=== PATIENT | male | born 1970 | race Caucasian/White ===

== ENCOUNTER 2021-03-07 03:25 | Emergency (ER) | payer OTHER ==
[~2021-03-07] VITALS: Ht 182.9 cm; Wt 90.7 kg
== END 2021-03-07 07:36 | disposition short-term general hospital (02) ==
LOC: ER 03:25
DX: R33.9 Retention of urine, unspecified (principal)
CPT/HCPCS: 51798; 96374; 99285-25; A9270; J3010

== ENCOUNTER 2021-09-25 16:49 | Emergency (ER) | payer OTHER ==
[~2021-09-25] VITALS: Ht 182.9 cm; Wt 84.8 kg
[~2021-09-25 16:49] MED LIST: APHEN325 MG PO; NICO21TP TOP
[2021-09-25 17:03] LABS: Source, Urine Clean Catch
[2021-09-25 17:34] LABS: Appearance, Urine Clear (Clear); Bilirubin, Urine Neg (Neg); Blood, Urine 1+ (Neg); Color, Urine Yellow (P-Yellow); Glucose Qualitative, Urine Neg (Neg); Ketones, Urine Neg (Neg); Leukocyte Esterase, Urine Neg (Neg); Nitrite, Urine Neg (Neg); Protein, Urine 2+ (Neg); Specific Gravity, Urine 1.005 (1.003-1.022); Urobilinogen, Urine 1+ (Normal)
[2021-09-25 18:12] LABS: Bacteria Mod /hpf; Squamous Epithelial Cells Rare /hpf (Few); White Blood Cells, Urine 0-2 /hpf (0-5)
[2021-09-25 18:13] LABS: Amorphous Light (0-Heavy); Mucus Mod (0-Heavy); Transitional Epithelial Cells Rare /hpf (0-Rare)
[2021-09-25] MEDS ORDERED: VALACYCLOVIR1000 MG PO (22:01)
[2021-09-25] MEDS ORDERED: CEPH500 PO (22:01)
[2021-09-26 09:18] LABS: RPR Reactive (Nonreactive)
[2021-09-28 01:11] LABS: CHLAMYDIA TRACHOMATIS, NAA Negative (Negative)
== END 2021-09-25 22:57 | disposition home or self-care (01) ==
LOC: ER 16:49
PROVIDERS: Physician Assistant
DX: N39.0 Urinary tract infection, site not specified (principal); A60.01 Herpesviral infection of penis
CPT/HCPCS: 81001; 86592; 86593; 87077; 87086; 87186; A9270; J0696; J1885; J2405

== ENCOUNTER 2023-08-21 11:02 | Emergency (ER) | payer OTHER ==
[~2023-08-21] VITALS: Ht 182.9 cm; Wt 84.8 kg
[~2023-08-21 11:02] MED LIST changes: +CEPH500 PO; +VALACYCLOVIR1000 MG PO
[2023-08-21 11:06] VITALS: BP 136/103
== END 2023-08-21 12:13 | disposition home or self-care (01) ==
LOC: ER 11:02
DX: K42.9 Umbilical hernia without obstruction or gangrene (principal); F17.210 Nicotine dependence, cigarettes, uncomplicated; Z88.0 Allergy status to penicillin
CPT/HCPCS: 99284-25

== ENCOUNTER 2024-12-21 05:33 | Emergency (ER) | payer OTHER ==
[~2024-12-21] VITALS: Ht 182.9 cm; Wt 83.9 kg
[2024-12-21 06:30] VITALS: BP 137/87
== END 2024-12-21 06:39 | disposition home or self-care (01) ==
LOC: ER 05:33
DX: S01.81XA Laceration without foreign body of other part of head, initial encounter (principal); F17.210 Nicotine dependence, cigarettes, uncomplicated; I10 Essential (primary) hypertension; Y09 Assault by unspecified means; Z88.0 Allergy status to penicillin
CPT/HCPCS: 12011; 99282-25

== ENCOUNTER 2025-04-26 12:56 | Inpatient (IN) | payer OTHER ==
[2025-04-26] VITALS (18 sets, daily range): BP systolic 80–120; BP diastolic 44–86
[~2025-04-26] VITALS: Ht 182.9 cm; Wt 88.4 kg
[2025-04-26] MEDS ORDERED: NS 1,000 ML IV SCH ×2 (13:10→17:20)
[2025-04-26 14:47] LABS: BASOPHILS ABSOLUTE AUTO 0.01 K/mm3 (0.00-0.23); BASOPHILS PERCENT AUTO 0 % (0-2); EOSINOPHILS ABSOLUTE AUTO 0.02 K/mm3 (0.00-0.68); EOSINOPHILS PERCENT AUTO 0 % (0-6); Hematocrit 33.9 % (37.0-53.0); Hemoglobin 11.0 g/dL (13.5-17.5); IMMATURE GRAN ABSOLUTE AUTO 0.03 K/mm3 (0.00-0.10); IMMATURE GRAN PERCENT AUTO 0 % (0-1); LYMPHOCYTES ABSOLUTE AUTO 0.87 K/mm3 (0.84-5.20); LYMPHOCYTES PERCENT AUTO 9 % (21-46); MONOCYTES ABSOLUTE AUTO 1.25 K/mm3 (0.16-1.47); MONOCYTES PERCENT AUTO 13 % (4-13); Mean Corpuscular HGB Conc 32.4 g/dL (31.5-36.5); Mean Corpuscular Volume 90 fL (80-100); NEUTROPHILS ABSOLUTE AUTO 7.55 K/mm3 (1.96-9.15); NEUTROPHILS PERCENT AUTO 78 % (41-73); NRBC ABSOLUTE 0.00 K/mm3 (0.00-0.02); NRBC Auto 0.0 /100 WBC (0.0-0.2); Platelet Count 197 K/mm3 (150-400); RDW Coefficient Variation 12.5 % (11.7-14.2); RDW Standard Deviation 41.3 fL (35.1-46.3)
[2025-04-26 15:10] LABS: Prothrombin Time Results 11.4 Sec (9.7-11.5)
[2025-04-26 15:13] LABS: Alanine Aminotransfer (ALT/SGP 23.0 U/L (12-78); Albumin, Blood 3.4 g/dL (3.4-5.0); Albumin/Globulin Ratio 1.0 (0.8-1.8); Anion Gap 5.0 mmol/L (3-11); Aspartate Aminotrans (AST/SGOT 27.0 U/L (12-37); Bilirubin, Total 1.3 mg/dL (0.1-1.0); Blood Urea Nitrogen 18.0 mg/dL (8-24); CO2, Blood 30.0 mmol/L (21-32); Calcium, Blood 8.5 mg/dL (8.5-10.1); Chloride, Blood 106.0 mmol/L (98-108); Creatinine, Blood 0.78 mg/dL (0.60-1.20); Globulin, Blood 3.3 g/dL (2.2-4.0); Glucose, Blood 139.0 mg/dL (70-99); Potassium, Blood 3.8 mmol/L (3.5-5.5); Sodium, Blood 137.0 mmol/L (136-145); Total Protein, Blood 6.7 g/dL (6.4-8.2)
[2025-04-26] MEDS ORDERED: Tranexamic Acid 100 ML IV ONE (16:10)
[2025-04-26 16:33] LABS: Calcium, Ionized (POC) 1.18 mmol/L (1.10-1.46); Chloride (POC) 100 mmol/L (98-108); Creatinine (POC) 0.9 mg/dL (0.8-1.3); Glucose (ISTAT POC) 107 mg/dL (70-99); Hematocrit (POC) 31.0 % (41.0-53.0); Hemoglobin (POC) 10.5 g/dL (13.5-17.5); Potassium (POC) 4.2 mmol/L (3.5-5.5); Sodium (POC) 139 mmol/L (135-148); Total CO2 (POC) 26 mmol/L (21-32)
[2025-04-26 17:13] LABS: Source, Urine Clean Catch
[2025-04-26] MEDS ORDERED: FentaNYL Citrate 50 MCG/ML 2 ML Injection ONE ×2 (17:13→20:58)
[2025-04-26 17:20] LABS: Bilirubin, Urine Neg (Neg); Color, Urine Yellow (P-Yellow); Glucose Qualitative, Urine Neg (Neg); Ketones, Urine Neg (Neg); Leukocyte Esterase, Urine Neg (Neg); Protein, Urine 2+ (Neg); Specific Gravity, Urine 1.020 (1.003-1.022); Urobilinogen, Urine NORM (Normal)
[2025-04-26] MEDS ORDERED: Metoclopramide HCl 5MG / ML 2ML Vial IV PRN ×2 (17:20→20:30)
[2025-04-26] MEDS ORDERED: Ondansetron HCl 2 MG / ML 2ML Vial IV PRN (17:20)
[2025-04-26] MEDS ORDERED: FentaNYL Citrate 50 MCG/ML 2 ML Injection IV PRN ×2 (17:20→18:20)
[2025-04-26 17:31] LABS: Red Blood Cells, Urine 0-2 /hpf (0-2)
[2025-04-26] MEDS ORDERED: HYDROmorphone HCl/Pf 1MG SYR IV PRN (17:35)
[2025-04-26 17:54] LABS: Hematocrit 30.9 % (37.0-53.0); Hemoglobin 10.1 g/dL (13.5-17.5)
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
[2025-04-26] MEDS ORDERED: NS 1,000 ML IV ONE ×2 (20:05→20:20)
[2025-04-26] MEDS ORDERED: Heparin Sodium 1000 Units/ML 10ML MDV ONE (20:05)
[2025-04-26] MEDS ORDERED: Metoclopramide HCl 5MG / ML 2ML Vial IV ONE (20:30)
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
[2025-04-26] MEDS ORDERED: Midazolam HCl 1MG / ML 2ML Vial ONE (20:57)
[2025-04-26] MEDS ORDERED: Phenylephrine HCl 100 MCG/ML-NS 10MLSYR (1MG/10ML) ONE (21:07)
[2025-04-26 22:19] LABS: Hematocrit 25.8 % (37.0-53.0); Hemoglobin 8.4 g/dL (13.5-17.5)
[2025-04-27] VITALS (96 sets, daily range): BP systolic 100–176; BP diastolic 60–108
--- NOTE | 2025-04-27 01:04 | NUR ---
PT RETURN FROM STORE STOCK ASSOCIATE: PT RETURNED FROM STORE STOCK ASSOCIATE @ 2200. PT HAS R. FEMORAL ACCESS SITE WITH AM ANGIOSEAL CLOSURE DEVICE. PT HAD THREE COILS PLACED TO THE SUB BRANCH SPLENIC ARTERY. R. FEM ACCESS SITE IS SOFT, NON-TENDER AND NO HEMATOMA PRESENT. PT EDUCATED ON LIMITED RANGE OF MOTION FOR R. LEG. PT VERBALIZES UNDERSTANDING. PT RECIEVING DILAUDID FOR PAIN MANAGEMENT WITH GOOD EFFECT. PG TO ADAM THAT IS PATENT AND INFUSING NS @ 100 MLS/HR. VSS AT THIS TIME. BED LOWERED, CALL LIGHT IN REACH.
[2025-04-27 02:32] LABS: Hematocrit 26.1 % (37.0-53.0); Hemoglobin 8.5 g/dL (13.5-17.5)
--- NOTE | 2025-04-27 06:14 | NUR ---
SHIFT SUMMARY: NO ACUTE CHANGES OVERNIGHT, VSS THROUGHOUT THE SHIFT. R . FEMORAL ACCESS SITE REMAINS UNCHANGED; SITE CLEANED AND NEW DRESSING PLACED. PT PAIN MANAGED WITH DILAUDID PER EMAR. PT IMPULSIVE AT TIMES BUT REMAINS REDIRECABLE. PI TO ADAM THAT IS PATENT AND INFUSING NS @ 100 MLS/HR. SERIAL H&H'S STABLE. BED LOWERED, CALL LIGHT IN REACH, WILL REPORT TO ONCOMING RN.
[2025-04-27 06:29] LABS: Hematocrit 25.9 % (37.0-53.0); Hemoglobin 8.5 g/dL (13.5-17.5); Mean Corpuscular HGB Conc 32.8 g/dL (31.5-36.5); Mean Corpuscular Volume 90 fL (80-100); NRBC ABSOLUTE 0.00 K/mm3 (0.00-0.02); NRBC Auto 0.0 /100 WBC (0.0-0.2); Platelet Count 185 K/mm3 (150-400); RDW Coefficient Variation 12.8 % (11.7-14.2); RDW Standard Deviation 42.2 fL (35.1-46.3)
[2025-04-27 06:46] LABS: Anion Gap 7.0 mmol/L (3-11); Blood Urea Nitrogen 20.0 mg/dL (8-24); CO2, Blood 27.0 mmol/L (21-32); Calcium, Blood 7.8 mg/dL (8.5-10.1); Chloride, Blood 105.0 mmol/L (98-108); Creatinine, Blood 0.66 mg/dL (0.60-1.20); Glucose, Blood 146.0 mg/dL (70-99); Potassium, Blood 4.2 mmol/L (3.5-5.5); Sodium, Blood 135.0 mmol/L (136-145)
--- NOTE | 2025-04-27 07:11 | NUR ---
Assumed care of pt at 0700. Bedside report received from Ijeoma GIBSON. Pt resting comfortably in bed. Even chest rise and fall noted. SpO2 96% RA. HR 92, NSR. BP stable.
[2025-04-27 08:17] LABS: Ferritin, Serum 161.0 ng/mL (26-388); Total Iron Binding Capacity 238.0 ug/dL (250-450)
--- NOTE | 2025-04-27 10:00 | NUR ---
Rey Tucker and Liza in to see patient this AM. Plan of care discussed.
[2025-04-27 10:49] LABS: Hematocrit 24.7 % (37.0-53.0); Hemoglobin 8.1 g/dL (13.5-17.5)
[2025-04-27 14:14] LABS: Hematocrit 22.8 % (37.0-53.0); Hemoglobin 7.8 g/dL (13.5-17.5)
--- NOTE | 2025-04-27 15:14 | NUR ---
H&H results noted. Pt more tachycardic than this AM, HR high 110s, low 120s. BP stable. Call placed to Dr Tucker to update. Plan to proceed with H&H check at 1800, as ordered. Dr De Jesus in to see pt this afternoon, labs and vitals discussed with him as well. Provider states plan to order nicotine patch (pt reports smoking 1/2 PPD) and PO pain medication.
--- NOTE | 2025-04-27 17:14 | NUR ---
SUMMARY: Pt does not answer orientation questions, but makes statements and requests that are contextually appropriate ( i.e. "how long have I been here", "I need more pain meds", etc.). Has been lethargic for majority of day. Pt reports feeling unwell whenever he is awake. Many verbal and nonverbal indications of pain when patient is awake. Out of bed once this shift to use toilet. Had one BM and one urine void. Tolerating clear liquid diet well. Skin assessment unchanged from initial. R groin site used for IR stable, no hematoma, bruising, or drainage. SpO2 90% or greater. SR-ST per monitor. Currently HR 95-110, although has been as high as 160 with activity (pt expressed severe pain with activity. HR normalized once pt was back in bed and resting).
[2025-04-27 18:11] LABS: Hematocrit 21.3 % (37.0-53.0); Hemoglobin 7.3 g/dL (13.5-17.5)
--- NOTE | 2025-04-27 18:29 | NUR ---
Call placed to Dr De Jesus and Dr Tucker to update with decrease in H&H. Plan of care discussed with Dr De Jesus. Message left for Dr Tucker.
[2025-04-27] MEDS ORDERED: NS 250 ML IV PRN (19:15)
[2025-04-27 20:03] LABS: U Amphetamine Screen DETECTED; U Barbituate Screen Not Detected; U Benzodiazapine Screen Not Detected; U Buprenorphine Screen Not Detected; U Cannabinoids Screen DETECTED; U Cocaine Screen Not Detected; U Methadone Screen Not Detected; U Methamphetamine Screen DETECTED; U Opiates Screen DETECTED; U Oxycodone Screen Not Detected; U Phencyclidine Screen Not Detected
[2025-04-28] VITALS (74 sets, daily range): BP systolic 117–169; BP diastolic 71–104
[2025-04-28 04:05] LABS: Hematocrit 21.4 % (37.0-53.0); Hemoglobin 7.5 g/dL (13.5-17.5)
--- NOTE | 2025-04-28 05:50 | NUR ---
SHIFT SUMMARY PATIENT VERY SLEEPY THROUGH SHIFT, ONLY WAKING FOR PAIN MEDICATIONS. PATIENT A&O X4 WHEN AWAKE. PATIENT USES BEDSIDE URINAL AND WALKS TO TOILET IN ROOM. HR IN THE 90-100'S WHEN RELAXED AND SLEEPING, WHEN AWAKE IN PAIN OR MOVING 120-130'S. SBP 140-150'S. ON ROOM AIR SATTING ABOVE 92%. ON A CLEAR LIUIID DIET. HAS A LEFT UPPER ARM POWERGLIDE. PATIENT RECIEVED 1 UNIT OF RBC'S PER ORDER AND TOLERATED WELL, HEMOGLOBIN 7.5, DR. JESSICA AWARE AND NO FURTHER ORDERS. CALL LIGHT WITHIN REACH.
[2025-04-28 05:59] LABS: Anion Gap 7.0 mmol/L (3-11); Blood Urea Nitrogen 18.0 mg/dL (8-24); CO2, Blood 28.0 mmol/L (21-32); Calcium, Blood 7.7 mg/dL (8.5-10.1); Chloride, Blood 103.0 mmol/L (98-108); Creatinine, Blood 0.67 mg/dL (0.60-1.20); Glucose, Blood 114.0 mg/dL (70-99); Potassium, Blood 4.0 mmol/L (3.5-5.5); Sodium, Blood 134.0 mmol/L (136-145)
[2025-04-28 10:58] LABS: Hematocrit 22.1 % (37.0-53.0); Hemoglobin 7.6 g/dL (13.5-17.5)
--- NOTE | 2025-04-28 11:23 | NUR ---
ASSUMPTION OF CARE ASSUMED CARE OF PT AT 0700 WITH ANDRY GIBSON, RECIEVED REPORT FROM MATEO GIBSON. PT IS A&0 X4, ABLE TO MAKE NEEDS KNOWN AND CAN MOVE EXTREMITIES EQUALLY AND BILATERALLY. CONITNUOUS CARDIAC MONITORING IS IN PLACE SHOWING SINUS TACH WITH HR IN THE 90'S-130'S, MAP >65. PT IS ON RA WITH SP02 >92%. PT USES URINAL IN BED. LUE POWERGLIDE IS IN PLACE. SIGNIFICANT BRUISING ON L SIDE OF ABD. BED IN LOWEST POSITION, CALL LIGHT IN REACH, CARE CONITNUES.
--- NOTE | 2025-04-28 11:56 | NUR ---
PT UPDATE CALLED DR EDWARDS AND DR FLEMING REGARDING PT'S Hgb OF 7.6, ORDERS RECIEVED TO RECHECK H&H IN THE AM. PT IS NOW PCU STATUS, BED IN LOWEST POSITION, CALL LIGHT IN REACH.
--- NOTE | 2025-04-28 17:29 | NUR ---
END OF SHIFT SUMMARY PT IS A&0 X4 AND CAN MOVE EXTREMITIES EQUALLY AND BILATERALLY. CONTINUOUS CARDIAC MONITORING IS IN PLACE SHOWING SINUS RYHTHM/TACHY HR IS IN THE 90'S-140'S, MAP >65. PT C/O PAIN THIS SHIFT MEDICATED PER EMAR, PROVIDER AWARE. PT IS ON RA WITH AN SP02 >92%. USES URINAL IN BED INDEPENDENTLY. SIGNIFICANT BRUSING ON L SIDE OF ABD. POWERGLIDE IS IN PLACE IN LUE. BED IN LOWEST POSITION, CALL LIGHT IN REACH, CARE CONTINUES.
--- NOTE | 2025-04-28 19:30 | NUR ---
ASSUMPTION OF CARE: ASSUMED CARE AT START OF SHIFT (1899). REPORT RECEIVED FROM DAY SHIFT RN. PT IS DOING WELL AND RESTING IN BED. PT IS ALERT AND ABLE TO FOLLOW COMMANDS. PT STATES HAVING ABDOMINAL PAIN BUT NO CP OR SOB AT THIS TIME. LUNG SOUNDS ARE CLEAR AND EQUAL BILATERALLY, ON RA WITH SPO >94%. SINUS RYTHM, MAP >65 HR: 100'S. IV: POWERGLIDE IN LUE. PT IS ABLE MAKE NEEDS KNOWN AND WILL USE CALL LIGHT. LINES AND CORDS PLACE OUT OF THE WAY AND CALL LIGHT PLACED WITHIN REACH.
[2025-04-29] VITALS (24 sets, daily range): BP systolic 114–163; BP diastolic 66–110
[2025-04-29 04:35] LABS: BASOPHILS ABSOLUTE AUTO 0.02 K/mm3 (0.00-0.23); BASOPHILS PERCENT AUTO 0 % (0-2); EOSINOPHILS ABSOLUTE AUTO 0.01 K/mm3 (0.00-0.68); EOSINOPHILS PERCENT AUTO 0 % (0-6); Hematocrit 20.4 % (37.0-53.0); Hemoglobin 7.1 g/dL (13.5-17.5); IMMATURE GRAN ABSOLUTE AUTO 0.06 K/mm3 (0.00-0.10); IMMATURE GRAN PERCENT AUTO 0 % (0-1); LYMPHOCYTES ABSOLUTE AUTO 1.02 K/mm3 (0.84-5.20); LYMPHOCYTES PERCENT AUTO 7 % (21-46); MONOCYTES ABSOLUTE AUTO 2.27 K/mm3 (0.16-1.47); MONOCYTES PERCENT AUTO 16 % (4-13); Mean Corpuscular HGB Conc 34.8 g/dL (31.5-36.5); Mean Corpuscular Volume 86 fL (80-100); NEUTROPHILS ABSOLUTE AUTO 10.62 K/mm3 (1.96-9.15); NEUTROPHILS PERCENT AUTO 76 % (41-73); NRBC ABSOLUTE 0.00 K/mm3 (0.00-0.02); NRBC Auto 0.0 /100 WBC (0.0-0.2); Platelet Count 166 K/mm3 (150-400); RDW Coefficient Variation 13.8 % (11.7-14.2); RDW Standard Deviation 43.1 fL (35.1-46.3)
[2025-04-29 04:50] LABS: Anion Gap 7.0 mmol/L (3-11); Blood Urea Nitrogen 11.0 mg/dL (8-24); CO2, Blood 30.0 mmol/L (21-32); Calcium, Blood 7.9 mg/dL (8.5-10.1); Chloride, Blood 100.0 mmol/L (98-108); Creatinine, Blood 0.59 mg/dL (0.60-1.20); Glucose, Blood 102.0 mg/dL (70-99); Potassium, Blood 3.8 mmol/L (3.5-5.5); Sodium, Blood 133.0 mmol/L (136-145)
--- NOTE | 2025-04-29 06:42 | NUR ---
SHIFT SUMMARY: PT IS DOING WELL AND RESTING IN BED. NO ACUTE CHANGES DURING THE SHIFT. PT WAS ABLE TO SLEEP PART OF THE NIGHT. PT HAS BEEN RECEIVING PAIN MEDS PER EMR ORDERS FOR THEIR ABDOMINAL PAIN. PT ABLE TO USE BEDSIDE URINAL AND WILL USE THE CALL LIGHT WHEN THEY NEED ASSSITANCE.
[2025-04-29 15:06] LABS: Hematocrit 21.3 % (37.0-53.0); Hemoglobin 7.2 g/dL (13.5-17.5)
--- NOTE | 2025-04-29 20:49 | NUR ---
ASSUMPTION OF CARE: ASSUMED CARE AT START OF SHIFT (1899). REPORT RECEIVED FROM DAY SHIFT RN. PT IS DOING WELL AND RESTING IN BED. THEY ARE ALERT AND FOLLOWING COMMANDS. PT STATES HAVING 8/10 ABDOMINAL PAIN BUT NO CP OR SOB AT THIS TIME. PT IS GETTING PAIN MEDS PER EMR ORDERS. LUNGS SOUNDS ARE CLEAR AND EQUAL BILATERALLY, ON RA WITH SPO2 >95%. BP AND HR HAVE BEEN STABLE. POWERGLIDE IN LUE. LINES AND CORDS PLACED OUT OF REACH. PT ABLE TO USE CALL LIGHT TO MAKE NEED KNOWN.
[2025-04-30] VITALS (14 sets, daily range): BP systolic 106–134; BP diastolic 64–82
[2025-04-30 04:28] LABS: Anion Gap 6.0 mmol/L (3-11); Blood Urea Nitrogen 9.0 mg/dL (8-24); CO2, Blood 30.0 mmol/L (21-32); Calcium, Blood 7.9 mg/dL (8.5-10.1); Chloride, Blood 100.0 mmol/L (98-108); Creatinine, Blood 0.62 mg/dL (0.60-1.20); Glucose, Blood 95.0 mg/dL (70-99); Potassium, Blood 3.4 mmol/L (3.5-5.5); Sodium, Blood 133.0 mmol/L (136-145)
--- NOTE | 2025-04-30 06:36 | NUR ---
SHIFT SUMMARY: PT IS DOING WELL AND RESTING IN BED. NO ACUTE CHANGES THROUGHOUT THE SHIFT. VITAL SIGNS HAVE BEEN STABLE. PT IS HAVING CONTINUOUS ABDOMINAL PAIN AND BEING MEDICATED WITH PAIN MEDS PER EMR ORDERS. PT WILL USE THE BEDSIDE URINAL WHEN NEEDED. LINES AND CORDS PLACED OUT OF REACH. CALL LIGHT PLACED WITHIN REACH.
[2025-04-30 07:00] LABS: BASOPHILS ABSOLUTE AUTO 0.02 K/mm3 (0.00-0.23); BASOPHILS PERCENT AUTO 0 % (0-2); EOSINOPHILS ABSOLUTE AUTO 0.07 K/mm3 (0.00-0.68); EOSINOPHILS PERCENT AUTO 1 % (0-6); Hematocrit 23.8 % (37.0-53.0); Hemoglobin 8.0 g/dL (13.5-17.5); IMMATURE GRAN ABSOLUTE AUTO 0.07 K/mm3 (0.00-0.10); IMMATURE GRAN PERCENT AUTO 1 % (0-1); LYMPHOCYTES ABSOLUTE AUTO 1.36 K/mm3 (0.84-5.20); LYMPHOCYTES PERCENT AUTO 10 % (21-46); MONOCYTES ABSOLUTE AUTO 2.45 K/mm3 (0.16-1.47); MONOCYTES PERCENT AUTO 18 % (4-13); Mean Corpuscular HGB Conc 33.6 g/dL (31.5-36.5); Mean Corpuscular Volume 89 fL (80-100); NEUTROPHILS ABSOLUTE AUTO 9.74 K/mm3 (1.96-9.15); NEUTROPHILS PERCENT AUTO 71 % (41-73); NRBC ABSOLUTE 0.00 K/mm3 (0.00-0.02); NRBC Auto 0.0 /100 WBC (0.0-0.2); RDW Coefficient Variation 13.3 % (11.7-14.2); RDW Standard Deviation 43.2 fL (35.1-46.3)
[2025-04-30 08:57] LABS: Platelet Count 240 K/mm3 (150-400)
[2025-04-30] MEDS ORDERED: Polyethylene Glycol 3350 17 gm PO SCH (09:00)
[2025-04-30] MEDS ORDERED: HYDROmorphone HCl/Pf 1MG SYR IV PRN (10:25)
[2025-04-30] MEDS ORDERED: HYDROcodone 10-APAP 325 TAB PO PRN (10:25)
--- NOTE | 2025-04-30 18:51 | NUR ---
SHIFT SUMMARY PT REPORTS FEELING BETTER TODAY AND WILL POTENTIALLY DISCHARGE TOMORROW. PT STS HE IS HOMELESS AND WOULD LIKE TO BE CONNECTED W/ [facility] AT [place]. PT ALERT AND ORIENTED, COOPERATIVE W/ CARE. HAD GOOD APPETITE TODAY. INDEPENDENT W/ URINAL AND RR. PT AFEBRILE. PG TO UPPER LEFT ARM PATENT AND SALINE LOCKED. PT UP TO SHOWER TODAY. REQUIRED MULITPLE DOSES OF PRN PAIN MEDICATION T/O DAY. DOSING SCHEDULE ADJUSTED PER PROVIDER AND PT UPDATED. CALL LIGHT W/ IN REACH AND BED IN LOWEST, LOCKED POSITION. PLAN OF CARE ONGOING
--- NOTE | 2025-04-30 20:00 | NUR ---
ASSUMTPION OF CARE: ASSUMED CARE AT START OF SHIFT (1899). REPORT RECEIEVED FROM DAY SHIFT RN. PT IS DOING WELL AND RESTING IN BED. PT IS ALERT AND FOLLOWING COMMANDS. PT STATES HAVING 7/10 ABDOMINAL PAIN BUT NO CP OR SOB AT THIS TIME. PT IS BEING MEDICATED WITH PAIN MEDS PER EMR ORDERS. LUNG SOUNDS ARE CLEAR AND EQUAL BILATEALLY, ON RA WITH SPO2 >95%. VITAL SIGNS HAVE BEEN STABLE. POWERGLIDE IN LUE. PT IS ABLE TO USE BEDSIDE URINAL. LINES AND CORDS PLACED OUT OF REACH. CALL LIGHT PLACED WITHIN REACH.
[2025-05-01] VITALS: BP 117/65
[2025-05-01 01:00] VITALS: BP 114/73
[2025-05-01 02:00] VITALS: BP 110/78
[2025-05-01 03:00] VITALS: BP 122/69
[2025-05-01 04:00] VITALS: BP 122/108
[2025-05-01 05:00] VITALS: BP 119/72
--- NOTE | 2025-05-01 05:57 | NUR ---
SHIFT SUMMARY: PT IS DOING WELL, THEY HAVE BEEN RESTING AND SLEEPING OFF AND ON THROUGHT THE NIGHT. NO ACUTE CHANGES DURING THE SHIFT. VITAL SIGNS HAVE BEEN STABLE. PT CONTINUES TO HAVE ABDOMINAL PAIN AND IS BEING MEDICATED PER EMR ORDERS. LINE AND CORDS PLACED OUT OF REACH. CALL LIGHT PLACED WITHIN REACH. PT WILL PRESS CALL BUTTON WHEN THEY NEED ASSITANCE.
[2025-05-01 06:49] LABS: BASOPHILS ABSOLUTE AUTO 0.02 K/mm3 (0.00-0.23); BASOPHILS PERCENT AUTO 0 % (0-2); EOSINOPHILS ABSOLUTE AUTO 0.11 K/mm3 (0.00-0.68); EOSINOPHILS PERCENT AUTO 1 % (0-6); Hematocrit 24.1 % (37.0-53.0); Hemoglobin 8.1 g/dL (13.5-17.5); IMMATURE GRAN ABSOLUTE AUTO 0.03 K/mm3 (0.00-0.10); IMMATURE GRAN PERCENT AUTO 0 % (0-1); LYMPHOCYTES ABSOLUTE AUTO 1.16 K/mm3 (0.84-5.20); LYMPHOCYTES PERCENT AUTO 11 % (21-46); MONOCYTES ABSOLUTE AUTO 1.80 K/mm3 (0.16-1.47); MONOCYTES PERCENT AUTO 17 % (4-13); Mean Corpuscular HGB Conc 33.6 g/dL (31.5-36.5); Mean Corpuscular Volume 88 fL (80-100); NEUTROPHILS ABSOLUTE AUTO 7.65 K/mm3 (1.96-9.15); NEUTROPHILS PERCENT AUTO 71 % (41-73); NRBC ABSOLUTE 0.00 K/mm3 (0.00-0.02); NRBC Auto 0.0 /100 WBC (0.0-0.2); Platelet Count 264 K/mm3 (150-400); RDW Coefficient Variation 13.5 % (11.7-14.2); RDW Standard Deviation 43.0 fL (35.1-46.3)
[2025-05-01 07:07] LABS: Anion Gap 7.0 mmol/L (3-11); Blood Urea Nitrogen 12.0 mg/dL (8-24); CO2, Blood 31.0 mmol/L (21-32); Calcium, Blood 8.0 mg/dL (8.5-10.1); Chloride, Blood 101.0 mmol/L (98-108); Creatinine, Blood 0.54 mg/dL (0.60-1.20); Glucose, Blood 92.0 mg/dL (70-99); Potassium, Blood 3.6 mmol/L (3.5-5.5); Sodium, Blood 135.0 mmol/L (136-145)
--- NOTE | 2025-05-01 08:13 | NUR ---
Pain complaint Patient called for more pain medication. When asked where his pain is he said his belly. When questioned further he proceeded to yell " can you get someone else in here"! "why don't you read my chart". When requesting for him to respectfully speak to this RN he yelled back "I have rib pain ok, jeez, you guys need to know whats going on", When I explained I do know his chart and his history I am just trying to figure out where and what the pain feels like. He stated, "can you get me the pain meds already". Told the primary RN about his pain med request. They proceeded to get him some oxycodone po. Dr Steven Dorantes then came to patients bedside.
--- NOTE | 2025-05-01 09:05 | NUR ---
AM NOTE... PATIENT A&OX4 AND ABLE TO MAKE NEEDS KNOWN. BP STABLE WITH MAPS >65. SPO2 >94% ON RA. PATIENT USING URINAL AT BEDSIDE IND. PATIENT STATING 9/10 PAIN TO LEFT ABD, MEDICATED PER EMAR. PG TO ADAM. PATIENT UPDATED ON PLAN OF CARE.
[2025-05-01] MEDS ORDERED: DOCU100 PO (09:41)
[2025-05-01] MEDS ORDERED: FERROUS GLUCON324 M2 PO (09:42)
[2025-05-01] MEDS ORDERED: Norco 10-325 T1 EACH PO (09:43)
[2025-05-01] MEDS ORDERED: MIRALAX11910 PO (09:44)
[2025-05-01] MEDS ORDERED: SENN187 PO (09:45)
[2025-05-01] MEDS ORDERED: METO25 PO (09:46)
--- NOTE | 2025-05-01 10:33 | NUR ---
DISCHARGE NOTE... PRESCRIPTIONS SENT TO [facility]. VERIFIED WITH [facility] THAT THEY RECIEVED FAX. PATIENT SENT WITH HARD SCRIPT. PATIENT EDUCATED ON NEW MEDICATIONS. IV D/C. PATIENT ABLE TO DRESS AND TRANSFER SELF TO W/C. [facility]I ARRANGED FOR PATIENT. PATIENT WAS ABLE TO TRANSFER SELF FROM W/C TO TAXI WITHOUT ASSISTANCE.
== END 2025-05-01 10:22 | disposition home or self-care (01) | DRG 958 ==
LOC: ER 12:56 → ICUE 17:33
PROVIDERS: Emergency Medicine; Internal Medicine; Nurse Practitioner Acute Care; Student in an Organized Health Care Education/Training Program; ADMIT Surgery
PROC: 04V43DZ Restriction of Splenic Artery with Intraluminal Device, Percutaneous Approach (ICD-10-PCS; principal; 2025-04-26)
PROC: 30233N1 Transfusion of Nonautologous Red Blood Cells into Peripheral Vein, Percutaneous Approach (ICD-10-PCS; 2025-04-27)
DX: S36.032A Major laceration of spleen, initial encounter (principal); D62 Acute posthemorrhagic anemia; S36.81XA Injury of peritoneum, initial encounter; S12.490A Other displaced fracture of fifth cervical vertebra, initial encounter for closed fracture; S22.32XA Fracture of one rib, left side, initial encounter for closed fracture; B18.2 Chronic viral hepatitis C; F15.10 Other stimulant abuse, uncomplicated; R73.9 Hyperglycemia, unspecified; F12.10 Cannabis abuse, uncomplicated; F10.10 Alcohol abuse, uncomplicated; I10 Essential (primary) hypertension; D72.829 Elevated white blood cell count, unspecified; Z87.19 Personal history of other diseases of the digestive system; Z90.49 Acquired absence of other specified parts of digestive tract; Z98.890 Other specified postprocedural states; W21.13XA Struck by golf club, initial encounter
CPT/HCPCS: 36415; 36430; 70450; 71250; 72125; 73030; 74160; 74176; 76937; 80047; 80048; 80053; 81001; 82607; 82728; 82746; 83540; 83550; 83690; 85014; 85018; 85025; 85027; 85049; 85610; 85730; 86850; 86900; 86901; 86923; 94760; 96361; 96374-59; 96375; 99152; 99153; 99285-25; A9270; C1751; C1760; C1769; C1887; C1894; J1171; J1644; J2250; J2371; J2405; J3010; J7030; P9016; Q9967

== ENCOUNTER 2025-05-15 00:58 | Emergency (ER) | payer OTHER ==
[~2025-05-15] VITALS: Ht 167.6 cm; Wt 83.9 kg
[~2025-05-15 00:58] MED LIST changes: +DOCU100 PO; +FERROUS GLUCON324 M2 PO; +METO25 PO; +MIRALAX11910 PO; +Norco 10-325 T1 EACH PO; +SENN187 PO
[2025-05-15 01:42] LABS: Alanine Aminotransfer (ALT/SGP 21.0 U/L (12-78); Albumin, Blood 2.8 g/dL (3.4-5.0); Albumin/Globulin Ratio 0.7 (0.8-1.8); Anion Gap 7.0 mmol/L (3-11); Aspartate Aminotrans (AST/SGOT 35.0 U/L (12-37); Bilirubin, Total 0.9 mg/dL (0.1-1.0); Blood Urea Nitrogen 16.0 mg/dL (8-24); CO2, Blood 28.0 mmol/L (21-32); Calcium, Blood 8.6 mg/dL (8.5-10.1); Chloride, Blood 107.0 mmol/L (98-108); Creatinine, Blood 0.57 mg/dL (0.60-1.20); Globulin, Blood 3.9 g/dL (2.2-4.0); Glucose, Blood 117.0 mg/dL (70-99); Potassium, Blood 4.3 mmol/L (3.5-5.5); Sodium, Blood 138.0 mmol/L (136-145); Total Protein, Blood 6.7 g/dL (6.4-8.2)
[2025-05-15 01:59] LABS: BASOPHILS ABSOLUTE AUTO 0.02 K/mm3 (0.00-0.23); BASOPHILS PERCENT AUTO 0 % (0-2); EOSINOPHILS ABSOLUTE AUTO 0.11 K/mm3 (0.00-0.68); EOSINOPHILS PERCENT AUTO 2 % (0-6); Hematocrit 27.7 % (37.0-53.0); Hemoglobin 9.2 g/dL (13.5-17.5); IMMATURE GRAN ABSOLUTE AUTO 0.04 K/mm3 (0.00-0.10); IMMATURE GRAN PERCENT AUTO 1 % (0-1); LYMPHOCYTES ABSOLUTE AUTO 1.02 K/mm3 (0.84-5.20); LYMPHOCYTES PERCENT AUTO 14 % (21-46); MONOCYTES ABSOLUTE AUTO 0.99 K/mm3 (0.16-1.47); MONOCYTES PERCENT AUTO 14 % (4-13); Mean Corpuscular HGB Conc 33.2 g/dL (31.5-36.5); Mean Corpuscular Volume 90 fL (80-100); NEUTROPHILS ABSOLUTE AUTO 4.98 K/mm3 (1.96-9.15); NEUTROPHILS PERCENT AUTO 70 % (41-73); NRBC ABSOLUTE 0.00 K/mm3 (0.00-0.02); NRBC Auto 0.0 /100 WBC (0.0-0.2); Platelet Count 585 K/mm3 (150-400); RDW Coefficient Variation 14.7 % (11.7-14.2); RDW Standard Deviation 47.8 fL (35.1-46.3)
[2025-05-15 02:43] LABS: Source, Urine Voided
[2025-05-15 02:58] LABS: Bilirubin, Urine Neg (Neg); Glucose Qualitative, Urine Neg (Neg); Ketones, Urine Neg (Neg); Leukocyte Esterase, Urine Neg (Neg); Protein, Urine Neg (Neg); Specific Gravity, Urine 1.015 (1.003-1.022); Urobilinogen, Urine 1+ (Normal)
[2025-05-15 02:59] LABS: Color, Urine Yellow (P-Yellow); U Amphetamine Screen DETECTED; U Barbituate Screen Not Detected; U Benzodiazapine Screen Not Detected; U Buprenorphine Screen Not Detected; U Cannabinoids Screen DETECTED; U Cocaine Screen Not Detected; U Methadone Screen Not Detected; U Methamphetamine Screen DETECTED; U Opiates Screen Not Detected; U Oxycodone Screen Not Detected; U Phencyclidine Screen Not Detected
[2025-05-15 04:00] VITALS: BP 142/87
== END 2025-05-15 04:11 | disposition home or self-care (01) ==
LOC: ER 00:58
PROVIDERS: Emergency Medicine
DX: R07.89 Other chest pain (principal); F15.10 Other stimulant abuse, uncomplicated; K40.90 Unilateral inguinal hernia, without obstruction or gangrene, not specified as recurrent; I10 Essential (primary) hypertension; F17.210 Nicotine dependence, cigarettes, uncomplicated; Z79.899 Other long term (current) drug therapy; Z88.0 Allergy status to penicillin
CPT/HCPCS: 71275; 74174; 80053; 81003; 83690; 84484; 85025; 93005; 93010; 99285-25; Q9967